=== PATIENT | female | born 1960 | race Caucasian/White ===

== ENCOUNTER 2023-03-17 12:34 | Emergency (ER) | payer OTHER, SELFPAY | END 2023-03-17 15:05 | disposition home or self-care (01) | LOC: ERS 12:34 | DX: S83.91XA Sprain of unspecified site of right knee, initial encounter (principal); I10 Essential (primary) hypertension; Z79.82 Long term (current) use of aspirin; W18.30XA Fall on same level, unspecified, initial encounter ==

== ENCOUNTER 2023-03-18 19:33 | Inpatient (IN) | payer MEDICARE, OTHER ==
[2023-03-18 22:02] LABS: #Eosinphils 0.3 thou/uL (0.0-0.7); #Monocytes 0.7 thou/uL (0.11-0.59); #Neutrophils 5.9 thou/uL (1.40-6.50); %Basophils 0.2 % (0.0-1.0); %Eosinophils 3.4 % (0.0-10.0); %Lymphocytes 19.7 % (21.0-51.0); %Neutrophils 68.5 % (42.0-75.0); Hematocrit 39.9 % (36.0-47.0); Mean Corpuscular HGB CONC 32.6 g/dL (32.0-36.0); Mean Corpuscular Hemoglobin 29.5 pg (27.0-31.0); Mean Corpuscular Volume 90.5 fl (78.0-98.0); Mean Platelet Volume 10.4 fL (7.4-10.4); Platelet Count 181 10x3/uL (130-400); RBC Distribution Width 14.3 % (11.5-14.5); Red Blood Cell (RBC) Count 4.41 mill/uL (4.20-5.40); White Blood Cell (WBC) Count 8.6 10x3/uL (4.8-10.8)
[2023-03-18 22:27] LABS: ALT (SGPT) 37 U/L (8-55); AST (SGOT) 34 U/L (5-34); Alkaline Phosphatase 96 U/L (40-110); Anion Gap 10 mmol/L (10-20); BUN (Urea Nitrogen) 13 mg/dL (9.8-20.1); Bilirubin, Total 1.2 mg/dL (0.2-1.2); Calc. Creatinine Clearance 0 mL/min (70-130); Carbon Dioxide 32 mmol/L (23-31); Chloride 104 mmol/L (98-107); Estimated GFR 81; Globulin 3.1 g/dL (2.4-3.5); Glucose 116 mg/dL (80-115); Potassium 3.5 mmol/L (3.5-5.1); Protein, Total 7.1 g/dL (5.8-8.1); Sodium 142 mmol/L (136-145)
[2023-03-18 22:34] LABS: Troponin I 0.331 ng/mL (< 0.028)
[2023-03-18] MEDS ORDERED: Aspirin 81 mg Enteric Coated Tablet ONE (22:54)
[2023-03-18] MEDS ORDERED: Nitroglycerin 2% Ointment 1 INCH/1 GM Packet ONE (22:54)
[2023-03-18] MEDS ORDERED: Aspirin Chewable 81 MG TAB ONE (22:55)
[2023-03-18] MEDS ORDERED: Ondansetron PF 4 MG/2 ML Vial IVP PRN (23:24)
[2023-03-18] MEDS ORDERED: Acetaminophen 325 MG TAB PO PRN (23:24)
[2023-03-18] MEDS ORDERED: Furosemide 20 MG/2 ML VIAL ONE (23:37)
[2023-03-18] MEDS ORDERED: Labetalol HCl 100 MG/20 ML VIAL ONE (23:39)
[2023-03-19] MEDS ORDERED: niCARdipine 25 MG in Sodium Chloride 0.9% 250 ML 250 ML IVPB SCH (00:30)
[2023-03-19 02:47] LABS: #Eosinphils 0.3 thou/uL (0.0-0.7); #Monocytes 0.7 thou/uL (0.11-0.59); #Neutrophils 6.1 thou/uL (1.40-6.50); %Basophils 0.3 % (0.0-1.0); %Eosinophils 3.6 % (0.0-10.0); %Lymphocytes 18.3 % (21.0-51.0); %Neutrophils 69.5 % (42.0-75.0); Hematocrit 36.6 % (36.0-47.0); Hemoglobin 11.8 g/dL (12.0-16.0); Mean Corpuscular HGB CONC 32.2 g/dL (32.0-36.0); Mean Corpuscular Hemoglobin 29.4 pg (27.0-31.0); Mean Corpuscular Volume 91.3 fl (78.0-98.0); Mean Platelet Volume 10.7 fL (7.4-10.4); Platelet Count 179 10x3/uL (130-400); RBC Distribution Width 14.4 % (11.5-14.5); Red Blood Cell (RBC) Count 4.01 mill/uL (4.20-5.40); White Blood Cell (WBC) Count 8.7 10x3/uL (4.8-10.8)
[2023-03-19 03:18] LABS: Critical Call Chem Troponin I RESULT DECREASING; Troponin I 0.312 ng/mL (< 0.028)
[2023-03-19 03:26] LABS: Anion Gap 12 mmol/L (10-20); BUN (Urea Nitrogen) 12 mg/dL (9.8-20.1); Calc. Creatinine Clearance 0 mL/min (70-130); Calcium 8.6 mg/dL (7.8-10.44); Carbon Dioxide 31 mmol/L (23-31); Chloride 103 mmol/L (98-107); Estimated GFR 78; Glucose 147 mg/dL (80-115); Potassium 3.3 mmol/L (3.5-5.1); Sodium 143 mmol/L (136-145)
[2023-03-19] MEDS ORDERED: NIFEdipine XL 60 MG ER.TAB PO SCH ×2 (03:45→09:00)
[2023-03-19] MEDS ORDERED: Potassium Chloride 20 MEQ TAB PO SCH (03:45)
[2023-03-19] MEDS ORDERED: Potassium Chloride 20 MEQ TAB ONE (03:48)
[2023-03-19 05:47] LABS: Magnesium 1.6 mg/dL (1.6-2.6)
[2023-03-19 05:57] LABS: Troponin I 0.316 ng/mL (< 0.028)
[2023-03-19] MEDS ORDERED: Morphine 4 MG/ML VIAL SLOW IVP PRN (05:59)
[2023-03-19] MEDS ORDERED: Furosemide 20 MG/2 ML VIAL ONE ×2 (06:11→15:55)
[2023-03-19] MEDS: Furosemide 20 MG/2 ML VIAL SLOW IVP SCH ×2 (07:02→15:59)
[2023-03-19] MEDS ORDERED: Electrolyte Replacement Protocol 1 EACH FS SCH (07:30)
[2023-03-19] MEDS ORDERED: Lisinopril 10 MG TAB ONE (07:48)
[2023-03-19] MEDS ORDERED: Magnesium 2 GM/50 ML(in water) 2 GM in Premix 1 BAG IVPB SCH (08:00)
[2023-03-19] MEDS ORDERED: Magnesium 2 GM/50 ML BAG (IN WATER) ONE (08:55)
[2023-03-19] MEDS: Lisinopril 10 MG TAB PO SCH ×2 (09:01→21:27)
[2023-03-19 17:16] VITALS: BMI 55.7
[2023-03-19] MEDS: Metoprolol Tartrate 50 MG TAB PO SCH (21:28)
[2023-03-20 06:15] LABS: #Eosinphils 0.3 thou/uL (0.0-0.7); #Monocytes 0.9 thou/uL (0.11-0.59); #Neutrophils 6.5 thou/uL (1.40-6.50); %Basophils 0.2 % (0.0-1.0); %Eosinophils 3.2 % (0.0-10.0); %Lymphocytes 19.2 % (21.0-51.0); %Monocytes 9.2 % (0.0-10.0); %Neutrophils 67.9 % (42.0-75.0); Hematocrit 38.6 % (36.0-47.0); Hemoglobin 12.1 g/dL (12.0-16.0); Mean Corpuscular HGB CONC 31.3 g/dL (32.0-36.0); Mean Corpuscular Hemoglobin 29.4 pg (27.0-31.0); Mean Corpuscular Volume 93.9 fl (78.0-98.0); Mean Platelet Volume 10.8 fL (7.4-10.4); Platelet Count 188 10x3/uL (130-400); RBC Distribution Width 14.4 % (11.5-14.5); Red Blood Cell (RBC) Count 4.11 mill/uL (4.20-5.40); White Blood Cell (WBC) Count 9.5 10x3/uL (4.8-10.8)
[2023-03-20] MEDS: Furosemide 20 MG/2 ML VIAL SLOW IVP SCH ×2 (06:39→14:12)
[2023-03-20 06:55] LABS: Anion Gap 9 mmol/L (10-20); BUN (Urea Nitrogen) 13 mg/dL (9.8-20.1); Calc. Creatinine Clearance 105 mL/min (70-130); Calcium 8.4 mg/dL (7.8-10.44); Carbon Dioxide 37 mmol/L (23-31); Chloride 101 mmol/L (98-107); Cholesterol 166 mg/dl (< 200 Desired); Estimated GFR 60; Glucose 99 mg/dL (80-115); HDL Cholesterol 41 mg/dL (>60 Neg Risk); LDL Cholesterol, Calculated 106 mg/dL; Magnesium 2.1 mg/dL (1.6-2.6); Potassium 3.7 mmol/L (3.5-5.1); Sodium 143 mmol/L (136-145); Triglycerides 95 mg/dL (Less than 150)
[2023-03-20] MEDS: Metoprolol Tartrate 50 MG TAB PO SCH ×2 (08:28→21:09)
[2023-03-20] MEDS: Lisinopril 10 MG TAB PO SCH (08:28)
[2023-03-20] MEDS: Aspirin 81 mg Enteric Coated Tablet PO SCH (08:28)
[2023-03-20] MEDS ORDERED: NIFEdipine XL 60 MG ER.TAB PO SCH (09:00)
[2023-03-20] MEDS ORDERED: Lisinopril 10 MG TAB PO SCH (10:00)
[2023-03-20] MEDS: Lisinopril 20 MG TAB PO SCH (21:09)
[2023-03-21 05:00] LABS: Anion Gap 11 mmol/L (10-20); BUN (Urea Nitrogen) 18 mg/dL (9.8-20.1); Calc. Creatinine Clearance 108 mL/min (70-130); Calcium 8.8 mg/dL (7.8-10.44); Carbon Dioxide 36 mmol/L (23-31); Chloride 98 mmol/L (98-107); Estimated GFR 62; Glucose 98 mg/dL (80-115); Magnesium 1.9 mg/dL (1.6-2.6); Potassium 3.8 mmol/L (3.5-5.1); Sodium 141 mmol/L (136-145)
[2023-03-21] MEDS: Furosemide 20 MG/2 ML VIAL SLOW IVP SCH ×2 (05:20→13:15)
[2023-03-21] MEDS ORDERED: Magnesium 2 GM/50 ML(in water) 2 GM in Premix 1 BAG IVPB SCH (08:00)
[2023-03-21] MEDS: Aspirin 81 mg Enteric Coated Tablet PO SCH (08:11)
[2023-03-21] MEDS: Lisinopril 20 MG TAB PO SCH ×2 (08:11→20:30)
[2023-03-21] MEDS: Metoprolol Tartrate 50 MG TAB PO SCH ×2 (08:11→20:30)
[2023-03-21] MEDS: hydrALAZINE 25 MG TAB PO SCH (20:30)
[2023-03-22 03:49] VITALS: TEMP 97.9
[2023-03-22] MEDS: hydrALAZINE 25 MG TAB PO SCH (08:23)
[2023-03-22] MEDS: Aspirin 81 mg Enteric Coated Tablet PO SCH (08:23)
[2023-03-22] MEDS: Metoprolol Tartrate 50 MG TAB PO SCH (08:23)
[2023-03-22] MEDS: Lisinopril 20 MG TAB PO SCH (08:24)
[2023-03-22] MEDS ORDERED: Furosemide 20 MG TAB PO SCH (09:00)
[2023-03-22 11:20] VITALS: BP 139/73
== END 2023-03-22 14:21 | disposition home or self-care (01) | DRG 280 ==
LOC: ERS 19:33 → ERHOLD 23:15 → OBSVTOIN 23:24 → 2NO 03-19 17:00
PROVIDERS: ADMIT Internal Medicine; ATTEND Family Medicine
DX: I11.0 Hypertensive heart disease with heart failure (principal); I50.33 Acute on chronic diastolic (congestive) heart failure; I21.A1 Myocardial infarction type 2; J96.01 Acute respiratory failure with hypoxia; Z68.43 Body mass index [BMI] 50.0-59.9, adult; I16.0 Hypertensive urgency; E66.9 Obesity, unspecified; Z98.890 Other specified postprocedural states; Z90.49 Acquired absence of other specified parts of digestive tract; Z90.710 Acquired absence of both cervix and uterus; Z79.82 Long term (current) use of aspirin
CPT/HCPCS: 36415; 71045; 80048; 80053; 80061; 83605; 83735; 83880; 84443; 84484; 85025; 93005; 93306; 96372; 96374; 96375; J1650; J1940; J3475

== ENCOUNTER 2023-05-23 18:55 | Emergency (ER) | payer MEDICARE, OTHER ==
[2023-05-23] MEDS ORDERED: HYDROcodone/Acetaminophen 10/325 mg Tablet ONE (20:25)
== END 2023-05-23 20:24 | disposition home or self-care (01) ==
LOC: ERS 18:55
DX: S80.02XA Contusion of left knee, initial encounter (principal); S80.01XA Contusion of right knee, initial encounter; I11.0 Hypertensive heart disease with heart failure; I50.9 Heart failure, unspecified; E66.9 Obesity, unspecified; Z79.899 Other long term (current) drug therapy; Z79.82 Long term (current) use of aspirin; W01.10XA Fall on same level from slipping, tripping and stumbling with subsequent striking against unspecified object, initial encounter